=== PATIENT | male | born 1990 | race Two or more races ===

== ENCOUNTER 2019-02-15 03:32 | Emergency (ER) | payer SELFPAY ==
[~2019-02-15] VITALS: Ht 170.2 cm; Wt 73.3 kg
--- NOTE | 2019-02-15 03:39 | NUR ---
MARCUS CONTACTED, ROSHAN CONTACTED AND SET UP STAT TRANSPORT.
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
[2019-02-15 03:44] VITALS: BP 106/62
--- NOTE | 2019-02-15 03:45 | NUR ---
REPORT TO PILAR, HEADLINE WRITER @ [facility]
[2019-02-15] MEDS ORDERED: SODIUM CHLORIDE 0.9% 1,000ML IVBOLUS ONE (04:00)
[2019-02-15] MEDS ORDERED: SODIUM CHLORIDE FLUSH 10ML SYR IVF ONE (04:00)
== END 2019-02-15 03:54 | disposition short-term general hospital (02) ==
LOC: ED 03:43
DX: S36.032A Major laceration of spleen, initial encounter (principal); S31.611A Laceration without foreign body of abdominal wall, left upper quadrant with penetration into peritoneal cavity, initial encounter; Y00.XXXA Assault by blunt object, initial encounter; Y93.89 Activity, other specified; Y92.410 Unspecified street and highway as the place of occurrence of the external cause; Y99.8 Other external cause status
CPT/HCPCS: 99285